=== PATIENT | male | born 1955 | race Caucasian/White ===

== ENCOUNTER 2018-09-08 09:57 | Emergency (ER) | payer BC, OTHER ==
[~2018-09-08] VITALS: Ht 170.2 cm; Wt 65.8 kg
--- NOTE | ~2018-09-08 | EKG ---
[place] [address] [facility] [place] [address] ELECTROCARDIOGRAM REPORT Name: NATALIE SOARES [id number] Admission: 09/08/18 Attend Phys: Discharge: Date of : 57 Report #: [id number] THIS REPORT FOR: //name// [facility] ED Test Date: 2018-09-08 Test Time: 10:02:58 Pat Name: NATALIE SOARES Department: Room: Gender: [employer] Caulker: [facility] : 1955 Requested By: Aicha Marcus Order Number: [id number] MD: Gokul Chen Measurements Intervals [place] Rate: 64 P: 53 MO: 178 QRS: 85 QRSD: 92 T: 37 QT: 336 QTc: 347 Interpretive Statements Sinus rhythm Anteroseptal infarct, with more prominent J-point elevation clinical correlation suggested Compared to ECG 08/19/2014 17:35:11 Anteroseptal J-point elevation more prominent Electronically Signed On 09-08-2018 10:59:07 [employer] by Gokul Chen [email or web address] <ELECTRONICALLY SIGNED> By: Gokul Chen MD 09/08/18 1059 1002 Roslyn Chen MD /EPI
[~2018-09-08 09:57] MED LIST: TOPROL XL25 MG PO
[2018-09-08 10:29] LABS: ABSOLUTE NEUTROPHILS 6.3 thou/uL (1.4-8.2); EOSINOPHILS 1.1 % (0.0-3.0); HEMATOCRIT 43.3 % (42.0-52.0); HEMOGLOBIN 14.8 gm/dL (14.0-18.0); LYMPHOCYTES 26.5 % (24.0-44.0); MCH 31.6 pg (26.0-34.0); MCHC 34.1 g/dL (28.0-37.0); MCV 92.7 fL (80.0-100.0); MONOCYTES 8.1 % (1.0-8.0); PLATELET COUNT 231 thou/uL (150-400); POLYS 63.3 % (36.0-66.0); RBC 4.67 mil/uL (4.50-6.00); RDW 12.9 % (10.5-14.5); WBC 9.9 thou/uL (4.0-11.0)
[2018-09-08 10:41] LABS: ANION GAP 11 mmol/L (7-16); BUN 15 mg/dL (7-18); CALCIUM 9.3 mg/dL (8.5-10.1); CHLORIDE 105 mmol/L (98-107); CO2 27 mmol/L (21-32); CREATININE 0.9 mg/dL (0.7-1.3); GLUCOSE 110 mg/dL (74-106); POTASSIUM 4.2 mmol/L (3.5-5.1); SODIUM 143 mmol/L (136-145)
[2018-09-08 10:49] LABS: ALBUMIN 3.7 g/dL (3.4-5.0); LIPASE 164 U/L (73-393); MAGNESIUM 1.8 mg/dL (1.8-2.4); SGOT 19 U/L (15-37); SGPT 25 U/L (30-65); TOTAL BILIRUBIN 0.5 mg/dL (<0.1-1.0); TOTAL PROTEIN 7.1 g/dL (6.4-8.2); TROPONIN-I <0.06 ng/mL (<0.06)
== END 2018-09-08 11:44 | disposition home or self-care (01) ==
LOC: ER 09:57
PROVIDERS: Nurse Practitioner Family
DX: I49.9 Cardiac arrhythmia, unspecified (principal); F17.210 Nicotine dependence, cigarettes, uncomplicated

== ENCOUNTER → 2018-09-19 | Outpatient (CLI) | payer BC, OTHER | LOC: NUC | DX: I47.1 Supraventricular tachycardia (principal); R94.31 Abnormal electrocardiogram [ECG] [EKG] ==

== ENCOUNTER → 2018-10-05 | Outpatient (CLI) | payer BC, OTHER ==
[~2018-10-05] VITALS: Ht 170.2 cm; Wt 65.8 kg
[~2018-10-05] MED LIST changes: +CARDIZEM CD120 MG PO
[2018-10-05 07:21] VITALS: BP 132/69
[2018-10-05 08:03] LABS: ABSOLUTE NEUTROPHILS 4.6 thou/uL (1.4-8.2); BASOPHILS 0.7 % (0.0-2.0); EOSINOPHILS 1.5 % (0.0-3.0); HEMATOCRIT 44.1 % (42.0-52.0); HEMOGLOBIN 14.9 gm/dL (14.0-18.0); MCH 31.8 pg (26.0-34.0); MCHC 33.9 g/dL (28.0-37.0); MCV 93.7 fL (80.0-100.0); MONOCYTES 11.1 % (1.0-8.0); PLATELET COUNT 226 thou/uL (150-400); POLYS 61.7 % (36.0-66.0); RDW 13.4 % (10.5-14.5); WBC 7.4 thou/uL (4.0-11.0)
[2018-10-05 08:11] LABS: CALCIUM 9.4 mg/dL (8.5-10.1); CREATININE 0.8 mg/dL (0.7-1.3); POTASSIUM 4.1 mmol/L (3.5-5.1)
[2018-10-05 08:16] LABS: APTT 29.3 Seconds (24.5-32.8); PROTIME 10.3 Seconds (9.3-11.4)
[2018-10-05 08:17] LABS: ALBUMIN 3.9 g/dL (3.4-5.0); TOTAL BILIRUBIN 0.3 mg/dL (<0.1-1.0); TOTAL PROTEIN 6.9 g/dL (6.4-8.2)
== END | disposition home or self-care (01) ==
LOC: CATH 06:41
PROVIDERS: Internal Medicine Cardiovascular Disease
DX: I47.1 Supraventricular tachycardia (principal); I10 Essential (primary) hypertension; I49.9 Cardiac arrhythmia, unspecified; I05.9 Rheumatic mitral valve disease, unspecified; F17.210 Nicotine dependence, cigarettes, uncomplicated; Z79.899 Other long term (current) drug therapy; Z82.49 Family history of ischemic heart disease and other diseases of the circulatory system; Z98.890 Other specified postprocedural states
CPT/HCPCS: 62110; 62900; 70005

== ENCOUNTER 2018-12-29 14:05 | Emergency (ER) | payer OTHER ==
[~2018-12-29] VITALS: Ht 170.2 cm; Wt 65.8 kg
[2018-12-29] MEDS ORDERED: NORCO 5-325 TA1 EACH PO (15:57)
[2018-12-29 18:08] VITALS: BP 122/101
== END 2018-12-29 16:00 | disposition home or self-care (01) ==
LOC: ER 14:05
DX: S43.102A Unspecified dislocation of left acromioclavicular joint, initial encounter (principal); S20.212A Contusion of left front wall of thorax, initial encounter; I10 Essential (primary) hypertension; I47.1 Supraventricular tachycardia; F17.210 Nicotine dependence, cigarettes, uncomplicated; Y04.0XXA Assault by unarmed brawl or fight, initial encounter; Y93.89 Activity, other specified; Y92.89 Other specified places as the place of occurrence of the external cause; Y99.8 Other external cause status